=== PATIENT | male | born 1960 | race Caucasian/White ===

== ENCOUNTER → 2020-12-29 | Outpatient (CLI) | payer MEDICARE ==
[~2020-12-29] MED LIST: CONTRAST GIVEN. MC PRN; IOHEXOL 240 MG/ML 50ML VIAL. PO ONE; IOHEXOL 300 MG/ML 100ML VIAL. IV ONE
--- NOTE | 2021-01-01 09:45 | RAD ---
CT ABDOMEN+PELVIS W History: Inguinal pain. History of hernia repair. Comparison: None. Technique: CT of the abdomen and pelvis with oral and intravenous contrast. Exposure: One or more of the following individualized dose reduction techniques were utilized for thi s examination: 1. Automated exposure control 2. Adjustment of the mA and/or kV according to patient size 3. Use of iterative reconstruction technique. Findings: The lung bases are clear. No pleural or pericardial effusion. The liver, gallbladder, bile ducts, pancreas, spleen, and adrenal glands are within normal limits. Th ere is an 8 mm cyst exophytic from the posterior interpole of the right kidney. No hydronephrosis or nephrolithiasis. The ureters are unremarkable. Normal partially distended bladder. Surgical changes at the diaphragmatic hiatus with moderate to large partially visualized paraesophage al hiatal hernia. No significant gastric wall thickening. The small bowel is unremarkable. Contrast e xtends to the transverse colon. Normal appearance of the colon without wall thickening or significant diverticular disease. Minimal atherosclerotic calcification of the aorta without aneurysm. No significant abdominal pelvic adenopathy. No free fluid or free air. Prostate is unremarkable. There are few pelvic phleboliths. Fat containing within the bilateral inguinal canals. Tiny fat-containing umbilical hernia. Degenerati ve changes of the spine and variant anatomy with 6 nonrib-bearing lumbar vertebral segments. 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 Impression: 1. Fat containing within the bilateral inguinal canals without evidence of bowel containing hernia. 2. Partially visualized moderate to large paraesophageal hiatal hernia in the setting of previous jason gical changes at the diaphragmatic hiatus. 3. Variant anatomy 6 lumbar vertebral segments with mild L6 anterolisthesis in the setting of bilater al pars defects. Electronically signed by: Glynn Ennis MD (01/01/2021 9:43 AM) [facility]
== END ==
LOC: CT 09:51
PROVIDERS: ATTEND Family Medicine
DX: K42.9 Umbilical hernia without obstruction or gangrene (principal); K44.9 Diaphragmatic hernia without obstruction or gangrene; N28.1 Cyst of kidney, acquired; N32.89 Other specified disorders of bladder; I70.0 Atherosclerosis of aorta; I87.8 Other specified disorders of veins; M47.816 Spondylosis without myelopathy or radiculopathy, lumbar region; M43.17 Spondylolisthesis, lumbosacral region; M51.36 Other intervertebral disc degeneration, lumbar region
CPT/HCPCS: 74177; Q9966; Q9967